=== PATIENT | female | born 1975 | race Caucasian/White ===

== ENCOUNTER 2024-01-20 11:14 | Day surgery (SDC) | payer OTHER ==
[2024-01-14 11:33] VITALS: BMI 37.5
[2024-01-20 12:32] VITALS: TEMP 97.3
[2024-01-20 12:42] VITALS: BP 110/70; PULSE 72; RESP 19
== END 2024-01-20 12:55 | disposition home or self-care (01) ==
LOC: FASU-ENDO 11:14
PROVIDERS: ATTEND Internal Medicine Gastroenterology
PROC: 0DBL8ZX Excision of Transverse Colon, Via Natural or Artificial Opening Endoscopic, Diagnostic (ICD-10-PCS; 2024-01-20)
PROC: 0DBM8ZX Excision of Descending Colon, Via Natural or Artificial Opening Endoscopic, Diagnostic (ICD-10-PCS; 2024-01-20)
PROC: 0DBK8ZX Excision of Ascending Colon, Via Natural or Artificial Opening Endoscopic, Diagnostic (ICD-10-PCS; principal; 2024-01-20 12:02)
DX: Z12.11 Encounter for screening for malignant neoplasm of colon (principal); K57.30 Diverticulosis of large intestine without perforation or abscess without bleeding; K64.1 Second degree hemorrhoids; R19.7 Diarrhea, unspecified; Z86.010 Personal history of colon polyps
CPT/HCPCS: 81025; 88305-TC